=== PATIENT | male | born 1975 | race Caucasian/White ===

== ENCOUNTER 2018-11-08 12:46 | Emergency (ER) | payer MEDICAID, OTHER ==
[2018-11-08] MEDS ORDERED: TIZANIDINE 4 MG TAB PO (14:00)
[2018-11-08] MEDS: KETOROLAC 60 MG INJ IM (14:04)
[2018-11-08] MEDS: METHOCARBAMOL 750 MG TAB PO (14:04)
== END 2018-11-08 14:16 | disposition home or self-care (01) ==
LOC: FTE 12:46
DX: S80.212A Abrasion, left knee, initial encounter (principal); M62.838 Other muscle spasm; V49.40XA Driver injured in collision with unspecified motor vehicles in traffic accident, initial encounter
CPT/HCPCS: 96372; 99284-25; J1885